=== PATIENT | male | born 1985 | race African-American/Black ===

== ENCOUNTER 2019-02-08 03:15 | Emergency (ER) | payer SELFPAY ==
[~2019-02-08] VITALS: Ht 182.9 cm; Wt 71.7 kg
[2019-02-08 04:30] VITALS: BP 160/88
[2019-02-08] MEDS ORDERED: TETRACAINE HCL 0.5% OPTH(EYE) SOLN 4ML RIGHTEYE ONE (05:15)
== END 2019-02-08 05:36 | disposition home or self-care (01) ==
LOC: ER 03:17
DX: S05.01XA Injury of conjunctiva and corneal abrasion without foreign body, right eye, initial encounter (principal); F17.210 Nicotine dependence, cigarettes, uncomplicated; F12.10 Cannabis abuse, uncomplicated; F14.10 Cocaine abuse, uncomplicated; W25.XXXA Contact with sharp glass, initial encounter; Y93.89 Activity, other specified; Y99.8 Other external cause status; Y92.89 Other specified places as the place of occurrence of the external cause

== ENCOUNTER 2022-03-17 19:35 | Emergency (ER) | payer SELFPAY ==
[~2022-03-17] VITALS: Ht 182.9 cm; Wt 68.9 kg
[2022-03-17 20:41] VITALS: BP 116/75
== END 2022-03-17 22:54 | disposition home or self-care (01) ==
LOC: ER 19:35
DX: S06.0X0A Concussion without loss of consciousness, initial encounter (principal); F17.210 Nicotine dependence, cigarettes, uncomplicated; F12.10 Cannabis abuse, uncomplicated; W22.8XXA Striking against or struck by other objects, initial encounter; Y93.89 Activity, other specified; Y92.89 Other specified places as the place of occurrence of the external cause; Y99.8 Other external cause status
CPT/HCPCS: 70450

== ENCOUNTER 2022-07-21 22:58 | Emergency (ER) | payer BC, MEDICAID ==
[~2022-07-21] VITALS: Ht 182.9 cm; Wt 72.0 kg
[2022-07-22 00:11] LABS: Basophils # (auto) 0 10 ^3/uL (0-0.2); Basophils % (auto) 0.4 % (0.0-2.0); Eosinophils # (auto) 0.5 10 ^3/uL (0-0.8); Eosinophils % (auto) 3.6 % (0.0-7.0); Hematocrit 44.4 % (41.0-53.0); Hemoglobin 15.3 g/dL (13.5-17.5); Lymphocytes # (auto) 1.3 10 ^3/uL (0.4-5.4); Lymphocytes % (auto) 9.7 % (10.0-50.0); Mean Corpuscular Hemoglobin 32.3 pg (28.0-32.0); Mean Corpuscular Hgb Conc. 34.5 g/dL (32.0-36.0); Mean Corpuscular Volume 93.8 fL (80.0-100.0); Monocytes # (auto) 0.8 10 ^3/uL (0-1.3); Monocytes % (auto) 6.3 % (0.0-12.0); Neutrophils # (auto) 10.6 10 ^3/uL (1.6-8.6); Red Blood Cells 4.73 10^6/uL (4.5-5.90); Red Cell Distribution Width 12.8 % (11.8-14.3); White Blood Cell 13.3 10^3/uL (4.4-10.8)
[2022-07-22 00:41] LABS: Albumin 4.3 g/dL (3.4-5.0); BUN/Creatinine Ratio 12.2; Calcium 9.6 mg/dL (8.5-10.1); Potassium 4.2 mmol/L (3.5-5.1)
[2022-07-22 00:42] LABS: Bilirubin, Total 0.4 mg/dL (0.2-1.0); Total Protein 7.6 g/dL (6.4-8.2)
[2022-07-22] MEDS ORDERED: IPRATROPIUM BROM 0.5 MG/2.5ML INH SOL NEB ONE (01:15)
[2022-07-22] MEDS ORDERED: BECL80AE11 IN (01:33)
[2022-07-22] MEDS ORDERED: METH4PAK PO (01:33)
[2022-07-22 02:55] VITALS: BP 145/76
== END 2022-07-22 02:57 | disposition home or self-care (01) ==
LOC: ER 22:58
DX: J45.901 Unspecified asthma with (acute) exacerbation (principal); F17.210 Nicotine dependence, cigarettes, uncomplicated
CPT/HCPCS: 36415; 71045; 80053; 83880; 84484; 85025; 93005; 94640; 99285; J7644